=== PATIENT | male | born 1960 | race Caucasian/White ===

== ENCOUNTER 2022-10-24 07:59 | Outpatient (CLI) | payer BC, SELFPAY | END 2022-10-24 08:00 | disposition home or self-care (01) | PROVIDERS: PCP Internal Medicine; Visit Provider Family Medicine | DX: M54.16 Radiculopathy, lumbar region (principal); M51.36 Other intervertebral disc degeneration, lumbar region | CPT/HCPCS: 64483; J1100; Q9966 ==

== ENCOUNTER 2023-02-06 06:57 | Outpatient (CLI) | payer BC, SELFPAY | END 2023-02-06 06:58 | disposition home or self-care (01) | LOC: INJ CL 06:58 | PROVIDERS: PCP Internal Medicine; Visit Provider Family Medicine | DX: M54.16 Radiculopathy, lumbar region (principal) | CPT/HCPCS: 64483; J1100; Q9966 ==

== ENCOUNTER 2023-06-27 09:20 | Outpatient (CLI) | payer BC, SELFPAY | END 2023-06-27 09:21 | disposition home or self-care (01) | LOC: NFLDREF 20:49 | PROVIDERS: PCP Internal Medicine; Referring Provider Internal Medicine; Visit Provider Internal Medicine | DX: Z12.5 Encounter for screening for malignant neoplasm of prostate (principal) | CPT/HCPCS: 84153 ==

== ENCOUNTER 2023-10-13 14:06 | Emergency (ER) | payer BC, SELFPAY ==
[2023-10-13 14:13] VITALS: BP 133/85; PULSE 86; RESP 16; TEMP 36.3; O2SAT 97; BMI 27.2
[2023-10-13 14:29] VITALS: O2SAT 97
--- NOTE | 2023-10-13 14:47 | ED.GENADULT ---
HPI - General Adult General Chief complaint: Arrhythmia/Palpitations Stated complaint: Irregular hR, pressure, irregular breaths-1 wk Time Seen by Provider: 10/13/23 14:15 Source: patient Mode of arrival: ambulatory Limitations: no limitations History of Present Illness HPI narrative: 62-year-old male presenting today with any regular heartbeat going on for 8 days. Patient denies ongoing shortness of breath or chest pain. No fevers or chills. No difficulty breathing. Normal appetite. Patient states that he has a history of supraventricular tachycardia approximately 10 years ago. He does not take any regular medications and is in generally good health. He states that his pulse was fluctuate between 70 and 140. He does notice that when it is going fast he will feel slightly winded with physical activity. Mother had history of atrial fibrillation. Related Data Previous Rx's Medication Instructions Recorded apixaban 5 mg tablet (Eliquis) 5 mg PO BID #60 tabs 10/13/23 metoprolol tartrate 25 mg tablet 25 mg PO BID #60 tabs 10/13/23 Allergies Allergy/AdvReac Type Severity Reaction Status Date / Time diclofenac Allergy Mild itching Verified 10/13/23 14:13 meloxicam Allergy Unknown swelling Verified 10/13/23 14:13 in throat and lips Review of Systems Status of ROS: Reports: 10 or more systems reviewed and unremarkable except as noted in History and below [facility] Medical History Sciatica ?M54.30 - Sciatica, unspecified side (ICD-10) Encounter for pre-operative examination ?Z01.818 - Encounter for other preprocedural examination (ICD-10) Encounter for postoperative care ?Z48.89 - Encounter for other specified surgical aftercare (ICD-10) Social History Smoking Status: Never smoker Little interest or pleasure in doing things: not at all Feeling down, depressed, or hopeless: not at all Exam Narrative: Exam Narrative: Well-nourished well-developed patient in no acute distress. Alert and oriented. Answers questions appropriately. Mood and affect are appropriate. Thoughts are goal oriented and rational. No tangential or magical thinking noted. Patient speaks in full sentences without needing to catch his breath. HEENT: Normocephalic atraumatic. Pupils are equally round reactive to light. Extraocular muscles are intact. Conjunctivae are moist without any icterus noted. Moist mucous membranes. Posterior pharynx is normal. Neck is soft without any lymphadenopathy or thyromegaly. No masses are appreciated. Cardiovascular: Irregularly irregular, no murmurs. Tachycardic. Lungs: Clear to auscultation bilaterally no wheezes rhonchi or rales are appreciated. Patient takes deep breaths without any discomfort. Abdomen: Soft and nontender nondistended with normal bowel sounds. Extremities: Bilateral lower extremities are without edema. Normal DP and PT pulses. Skin: Well perfused without any obvious rashes. Const: Vital Signs, click to edit/add: Vital Signs - 24 hr 10/13/23 14:13 10/13/23 14:29 Temperature 97.4 F L Pulse Rate [Pulse Oximeter] 86 Respiratory Rate 16 Blood Pressure [Ri ght Upper Arm] 133/85 Pulse Oximetry 97 97 Oxygen Delivery Me thod Room Air Course Course ED Course: EKG, read by me, shows atrial fibrillation with rapid ventricular response with a pulse of 122. I did consult with Dr. Lind, cardiology at [facility], who recommended that given that the patient is hemodynamically stable and is tolerating the atrial fibrillation, he can be sent home with Eliquis and metoprolol for rate control at this time. Cardioversion of course is not recommended given the fact that the patient has been feeling palpitations for a week. Vital Signs Vital signs: Initial Vital Signs Temperature 97.4 F L 10/13/23 14:13 Temperature Source Temporal Artery Scan 10/13/23 14:13 Pulse Rate 86 10/13/23 14:13 Respiratory Rate 16 10/13/23 14:13 Blood Pressure 133/85 10/13/23 14:13 Blood Pressure Mean 101 10/13/23 14:13 Blood Pressure Position Sitting 10/13/23 14:13 Pulse Oximetry 97 10/13/23 14:13 Oxygen Delivery Method Room Air 10/13/23 14:13 Vital Signs Temperature 97.4 F L 10/13/23 14:13 Pulse Rate 86 10/13/23 14:13 Respiratory Rate 16 10/13/23 14:13 Blood Pressure 133/85 10/13/23 14:13 Pulse Oximetry 97 10/13/23 14:13 Oxygen Delivery Method Room Air 10/13/23 14:13 Temperature 97.4 F L 10/13/23 14:13 Pulse Rate 86 10/13/23 14:13 Respiratory Rate 16 10/13/23 14:13 Blood Pressure 133/85 10/13/23 14:13 Pulse Oximetry 97 10/13/23 14:29 Oxygen Delivery Method Room Air 10/13/23 14:13 Medical Decision Making MDM Narrative Medical decision making narrative: 62-year-old male with atrial fibrillation with RVR, present for over a week. Hemodynamically stable. Patient will be sent home with Eliquis and metoprolol 25 mg p.o. b.i.d.. Repeat EKG on Sunday with primary care provider, follow-up with cardiology. ECG Data Attestation: I personally reviewed and interpreted this ECG as follows: Discharge Plan Discharge Clinical Impression: Atrial fibrillation with rapid ventricular response Patient Disposition: Home, Self-Care Condition: Stable Additional Instructions: You will need to start taking 2 medications: The 1st one is a blood thinner to prevent blood clots that occur in atrial fibrillation and the 2nd one is a medication to slow down the heart rate. You should have a repeat EKG done on Sunday. If you cannot get in on Sunday your Sunday appointment will be sufficient as long as your pulse remains around 100 or less over the weekend. You will also need to follow-up with cardiology, you should call 1st thing Sunday morning to set up an appointment. Prescription sent to [facility], [facility] in [place] Prescriptions: New Eliquis 5 mg tablet 5 mg PO BID Qty: 60 0RF metoprolol tartrate 25 mg tablet 25 mg PO BID Qty: 60 0RF Follow Up/Referrals: Jacques Philip MD [Primary Care Provider] - Stand Alone Forms: [employer] Info Instructions
--- OUTSIDE RECORDS SUMMARY | 2023-10-13 15:14 | XMS_ITS | Continuity of Care Document ---
Author Name Unknown Organization [facility] Address [address] [address] [place] [address] Phone Care Team Providers Care Rock Dust Sprayer Name Role Phone Marcelo Mejia CRNA Unavailable Unavailable Allergies, Adverse Reactions, Alerts Substance Reaction Status Criticality meloxicam Active No Information Medications Medication Instructions Dosage Effective Dates (start - stop) Status Comments No Drug Therapy Prescribed Procedures Procedure Date Colonoscopy Flex; W/remov Les- Level Iv-surg Path Gross/micro Advance Directives Directive Yes / No Effective Date File Name No Information Encounters Encounter Description Practice Location Reason(s) For Visit Diagnoses Date Provider Providers Copied on Encounter [facility], [address] [address], [place], [place], [id number], [place] tel:[phone] [facility] No Information 2 Roberto Robertson. [address] [facility] [address], [place], [place], [id number] , [place]. tel:[phone] Referring Provider: Barber Granados MD M, [address], [place], [address] . tel:[phone] [facility], [address] [address], [place], [place], [id number], [place] tel:[phone] [facility] Colorectal polypsEncounter for screening for malignant neoplasm of colonBenign neoplasm of descending colon 2 Darwin Blandon. [address], [place], [place], [id number] , [place]. tel:[phone] Jacques Philip MD. tel:[phone] erring Provider: Sharona Salas MD, [address] [place], [address]. tel:[phone] [facility], [address] [address], [place], [place], [address], [place] tel:[phone] [facility] No Information 2 Esme ANNE [facility]. [address], [facility] [address], [place], [place], [id number] , [place]. tel:[phone] Family History Family Member Type Diagnosis Age At Onset No Information Immunizations Vaccine Date Status Comments SARS-COV-2 (COVID-19) vaccin e, mRNA, spike protein, LNP, preservative free, 30 mcg/0.3mL dose administered Note: [facility] bi-direct ional interface ; Source: Other Registry Seasonal, quadrivalent, recombinant, injectable influenza vaccine, preservative free administered Note: [facility] bi-direct ional interface ; Source: Other Registry zoster vaccine recombinant administered N ote: [facility] bi-directional interface ; Source: Other Registry SARS-COV-2 (COVID-19) vaccin e, mRNA, spike protein, LNP, preservative free, 30 mcg/0.3mL dose administered Note: [facility] bi-direct ional interface ; Source: Other Registry SARS-COV-2 (COVID-19) vaccin e, mRNA, spike protein, LNP, preservative free, 30 mcg/0.3mL dose administered Note: [facility] bi-direct ional interface ; Source: Other Registry zoster vaccine recombinant administered N ote: [facility] bi-directional interface ; Source: Other Registry Influenza administered Note: [facility] bi-d irectional interface ; Source: Other Registry Influenza administered Note: [facility] bi-d irectional interface ; Source: Other Registry Afluria Qd administered Note: [facility] bi-directional interface ; Source: Other Registry Afluria Qd administered Note: [facility] bi-directional interface ; Source: Other Registry tetanus toxoid, reduced diphtheria toxoid, and acellular pertussis vaccine, adsorbed administered Note: [facility] b i-directional interface ; Source: Other Registry Influenza, seasonal, injecta ble, preservative free administered Note: [facility] bi-direct ional interface ; Source: Other Registry Influenza, seasonal, injectable administe red Note: [facility] bi- directional interface ; Source: Other Registry Influenza, seasonal, injecta ble, preservative free administered Note: [facility] bi-direct ional interface ; Source: Other Registry Payers Payer name Insurance type Covered alliance party ID Authoriza tion(s) [employer] [facility] [id number] Social History Type Description Quantity Date Captured Comments Sex Male Smoking Status No Information Chief Complaint And Reason For Visit No Information Reason For Referral Reason For Referral No Information History Of Present Illness Encounter Date Complaint History Of Prese nt Illness No Information Functional Status Date Functional Assessmen t No Information Medications Administered Medication Instructions Dosage Effective Dates (start - stop) Status Comments No Drug Therapy Prescribed Instructions Date Instruction Additional Infor kolby Colon Polyps Related to Color ectal polyps Assessments Type Assessment Date No Information Patient Care Teams Name Effective Dates (start - stop) Status Members No Information
--- OUTSIDE RECORDS SUMMARY | 2023-10-13 15:14 | XMS_ITS | Clinical Summary ---
Author Name Unknown Organization [facility] Address [place], [place] [address] Care Team Providers Care Director Search Marketing Strategies Name Role Phone Jacques Philip MD Primary Care Provider Allergies Active Allergy Reactions Criticality Noted Date Comments Meloxicam Angioedema 10/06/2021 Medications No known medications Active Problems No known active problems Social History Tobacco Use Types Packs/Day Years Used Date Smoking Tobacco: Some Days Cigars Smokeless Tobacco: Never Tobacco Cessation:Ready to Q uit: No; Counseling Given: Not Answered Social Connections Answer Date Recorded Frequency of Communication with Friends and Fami ly Not on file 10/05/2022 Sex and Gender Information Value Date Recorded Sex Assigned at Not on file Gender Identity Not on file Sexual Orientation Not on file Obstetrics History Last Filed Vital Signs Vital Sign Reading Time Taken Comments Blood Pressure 119/79 12/04/2022 8:25 AM CDT Pulse 61 12/04/2022 8:25 AM CDT Temperature 36.3 ??C (97.4 ??F) 12/04/2022 8:25 AM CD T Respiratory Rate - - Oxygen Saturation 97% 12/04/2022 8:25 AM CDT Inhaled Oxygen Concentration - - Weight 98.7 kg (217 lb 9.6 oz) 12/04/2022 8:25 A M CDT shoes on Height - - Body Mass Index - - Plan of Treatment Health Maintenance Due Date Last Done Comments Pneumococcal series for age 6-64 (1 of 2 - PCV) 1966 Tdap 12/26/1971 Depression screening for age 12+ 1972 HIV for age 15-65 12/26/1975 BMI (ht and wt on same day) for age 18+ 1978 Hepatitis C screening for age 18-79 1978 Tetanus booster 1980 Colonoscopy through age 75 2005 Lipids for age 45-75 2005 Zoster (shingles) series for age 50+ (1 of 2) 2010 COVID-19 vaccine series (2022-24 season) 2023 08/07/2022, 12/04/2020, 11/13/2020 Influenza for age 50-64 04/27/2023 Care Teams Director Search Marketing Strategies Relationship Specialty Start Date End Date Jacques Philip MD [address] [place] [id number] PCP - General Internal Medicine 09/26/22
--- NOTE | 2023-10-13 15:57 | ED.NURSE ---
Patient returned to the ED reporting that [facility] pharmacy is unable to fill his metoprolol and eliquis because they are not in his network. He's requesting that we send the prescriptions to [facility] pharmacy instead. Coating Mixer Supervisor attempted to contact the pharmacist there multiple times without success, so left a message with prescription information on their refill voicemail. Contact information provided for [facility] if they have any questions.
--- NOTE | 2023-10-13 16:44 | ED.NURSE ---
Patient called again requesting that the Eliquis prescription be phoned into his regular pharmacy ([facility]). He was able to fill the metoprolol prescription at [facility]. Patient advised that not all insurances cover Eliquis, that he might not have coverage for that. Patient would still prefer to speak to his regular pharmacy ([facility]) Sunday to consult. Patient advised to also call his insurance company Sunday for further information on coverage (patient tried to call but no one was available over the weekend). No further questions or concerns. Eliquis phoned into [facility] pharmacy as requested.
== END 2023-10-13 15:16 | disposition home or self-care (01) ==
LOC: ED 15:12
PROVIDERS: Emergency Provider Family Medicine; PCP Internal Medicine
DX: I48.20 Chronic atrial fibrillation, unspecified (principal)
CPT/HCPCS: 93005; 94761; 99284

== ENCOUNTER 2023-10-24 09:01 | Outpatient (CLI) | payer BC, SELFPAY | END 2023-10-24 09:02 | disposition home or self-care (01) | LOC: RAD 09:02 | PROVIDERS: PCP Internal Medicine; Visit Provider Internal Medicine | DX: I48.91 Unspecified atrial fibrillation (principal); I51.7 Cardiomegaly; I34.0 Nonrheumatic mitral (valve) insufficiency | CPT/HCPCS: 93306 ==

== ENCOUNTER 2024-07-03 08:16 | Outpatient (CLI) | payer BC, SELFPAY | END 2024-07-03 08:17 | disposition home or self-care (01) | LOC: NFLDREF 07-07 11:51 | PROVIDERS: PCP Internal Medicine; Referring Provider Internal Medicine; Visit Provider Internal Medicine | DX: Z13.228 Encounter for screening for other metabolic disorders (principal); Z13.220 Encounter for screening for lipoid disorders; Z12.5 Encounter for screening for malignant neoplasm of prostate | CPT/HCPCS: 80053; 80061; G0103 ==

== ENCOUNTER 2025-07-27 09:38 | Outpatient (CLI) | payer BC, SELFPAY | END 2025-07-27 09:39 | disposition home or self-care (01) | LOC: NFLDREF 07-30 13:23 | PROVIDERS: PCP Internal Medicine; Referring Provider Internal Medicine; Visit Provider Internal Medicine | DX: E78.5 Hyperlipidemia, unspecified (principal); Z13.9 Encounter for screening, unspecified | CPT/HCPCS: 80053; 80061; G0103 ==